=== PATIENT | male | born 1950 | race African-American/Black ===

== ENCOUNTER 2024-02-04 12:09 | Inpatient (IN) | payer MEDICARE, MEDICAID ==
[~2024-02-04] VITALS: Ht 175.3 cm; Wt 85.7 kg
[2024-02-04 13:29] LABS: POTASSIUM 4.2 mEq/L (3.5-5.1)
[2024-02-04 13:30] LABS: CALCIUM 10.3 mg/dL (8.7-10.4)
[2024-02-04 13:32] LABS: INR 1.2; PARTIAL THROMBOPLASTIN TIME 40.1 sec (23.4-31.0)
[2024-02-04] MEDS ORDERED: OXYM30SP26 BOTHNSTRLS (14:41)
[2024-02-04 17:36] LABS: HEMATOCRIT. 22.7 % (42.0-52.0); HEMOGLOBIN. 7.7 g/dL (14.0-18.0); MEAN CORPUSCULAR HGB CONC 33.9 g/dL (31.0-37.0); MEAN CORPUSCULAR VOLUME 88.5 fL (80.0-94.0); MEAN PLATELET VOLUME 8.8 fl (7.4-10.4); RED BLOOD CELL COUNT 2.57 mill/uL (4.7-6.1); RED CELL DISTRIBUTION WIDTH 14.3 % (11.6-14.6); WHITE BLOOD COUNT 4.6 x1000/uL (4.5-11.0)
[2024-02-04 17:37] LABS: DIFFERENTIAL COMMENT 1
[2024-02-04 17:43] LABS: PLATELET 23 x1000/uL (130-400)
[2024-02-04 18:13] LABS: PLATELET ESTIMATE MARKEDLY DECREASED
[2024-02-04 21:00] VITALS: BP 145/71; PULSE 99; RESP 18; TEMP 35.8064
[2024-02-04 21:40] VITALS: BP 145/71; PULSE 99; RESP 18; TEMP 35.78064; O2SAT 100
[2024-02-04] MEDS ORDERED: CLONIDINE 0.1MG TABLET PO PRN (23:00)
[2024-02-04] MEDS ORDERED: IPRATROPIUM/ALBUTEROL 0.5-3(2.5)MG/3ML NEB NEB PRN (23:00)
[2024-02-04] MEDS: SODIUM CHLORIDE 0.9% 1,000 ML IV SCH (23:00)
[2024-02-04] MEDS ORDERED: ZOLPIDEM TARTRATE 5MG TABLET PO PRN (23:00)
[2024-02-04] MEDS ORDERED: ONDANSETRON HCL 4MG/2ML INJ IV PRN (23:00)
[2024-02-04] MEDS ORDERED: ACETAMINOPHEN 325MG TABLET PO PRN (23:00)
[2024-02-05] VITALS (11 sets, daily range): BP systolic 90–140; BP diastolic 54–89; PULSE 87–112; RESP 1–19; TEMP 36.44736–37.39188; O2SAT 96–100
[2024-02-05] MEDS: MORPHINE SULFATE 2 MG/ML INJ (NOT FOR IM USE) IV PRN (01:23)
[2024-02-05 06:21] LABS: INR 1.2; PARTIAL THROMBOPLASTIN TIME 41.9 sec (23.4-31.0)
[2024-02-05] MEDS ORDERED: NALOXONE HCL 0.4MG/ML VIAL IV PRN (07:30)
[2024-02-05] MEDS: PANTOPRAZOLE SODIUM 40 MG/VIAL IV SCH (09:12)
[2024-02-05 10:27] LABS: HEMATOCRIT. 23.3 % (42.0-52.0); HEMOGLOBIN. 7.6 g/dL (14.0-18.0); MEAN CORPUSCULAR HEMOGLOBIN 28.3 pg (28.0-32.0); MEAN CORPUSCULAR HGB CONC 32.6 g/dL (31.0-37.0); MEAN CORPUSCULAR VOLUME 86.8 fL (80.0-94.0); RED BLOOD CELL COUNT 2.69 mill/uL (4.7-6.1); RED CELL DISTRIBUTION WIDTH 14.5 % (11.6-14.6)
[2024-02-05 10:44] LABS: DIFFERENTIAL COMMENT 1; WHITE BLOOD COUNT 5.6 x1000/uL (4.5-11.0)
[2024-02-05 13:44] LABS: POTASSIUM 3.6 mEq/L (3.5-5.1)
[2024-02-05 13:45] LABS: CALCIUM 9.9 mg/dL (8.7-10.4)
[2024-02-05 13:50] LABS: CREATININE 1.9 mg/dL (0.6-1.3)
[2024-02-05 14:42] LABS: NUCLEATED RED BLOOD CELLS 1 /100 WBC; ROULEAUX 2+
[2024-02-05 14:44] LABS: PLATELET ESTIMATE DECREASED
[2024-02-05 14:46] LABS: PLATELET 66 x1000/uL (130-400)
[2024-02-06] VITALS: BP 128/77; PULSE 95; RESP 19; TEMP 37.2252; O2SAT 97
[2024-02-06 01:20] LABS: CREATINE KINASE MB FRACTION 0.7 ng/mL (0.5-3.6); TROPONIN I HIGH SENSITIVITY 8 ng/L (3.0-53)
[2024-02-06 01:22] LABS: CREATINE KINASE 97 IU/L (46-171)
[2024-02-06 04:00] VITALS: BP 121/71; PULSE 87; RESP 19; TEMP 36.89184; O2SAT 96
[2024-02-06 08:00] VITALS: BP 120/76; PULSE 84; RESP 20; TEMP 36.55848; O2SAT 100
[2024-02-06] MEDS: LACTULOSE 20G/30ML UDC PO SCH (09:17)
[2024-02-06] MEDS ORDERED: AMLO10TA80 MT (10:59)
[2024-02-06] MEDS: MORPHINE SULFATE 2 MG/ML INJ (NOT FOR IM USE) IV PRN (11:46)
[2024-02-06 12:00] VITALS: BP 137/85; PULSE 87; RESP 20; TEMP 36.55848; O2SAT 100
[2024-02-06 16:00] VITALS: BP 142/84; PULSE 84; RESP 20; TEMP 36.3918; O2SAT 98
[2024-02-06 20:00] VITALS: BP 131/71; PULSE 92; RESP 20; TEMP 36.3918; O2SAT 95
[2024-02-07] VITALS: BP 122/71; PULSE 95; RESP 20; TEMP 37.00296; O2SAT 96
[2024-02-07 08:00] VITALS: BP 124/74; PULSE 87; RESP 20; TEMP 36.22512; O2SAT 99
[2024-02-07] MEDS: FLUTICASONE PROPIONATE 50MCG/SPRAY BOTTLE BOTHNSTRLS NR (09:13)
[2024-02-07 10:32] VITALS: BP 120/74; PULSE 87; TEMP 97.2; O2SAT 99
[2024-02-07 12:22] VITALS: BP 135/79; PULSE 91; RESP 18; TEMP 36.33624; O2SAT 98
== END 2024-02-07 15:30 | DRG 691 ==
LOC: ER 12:09 → EDBEDREQ 19:45 → EDBEDREQTM 19:45 → 5WST 21:08 → 6EST 02-05 06:22
PROVIDERS: ADMIT Internal Medicine; ATTEND Internal Medicine
PROC: 30233R1 Transfusion of Nonautologous Platelets into Peripheral Vein, Percutaneous Approach (ICD-10-PCS; principal; 2024-02-05)
DX: C90.02 Multiple myeloma in relapse (principal); N17.9 Acute kidney failure, unspecified; D69.6 Thrombocytopenia, unspecified; R04.0 Epistaxis; I12.9 Hypertensive chronic kidney disease with stage 1 through stage 4 chronic kidney disease, or unspecified chronic kidney disease; D64.9 Anemia, unspecified; G89.29 Other chronic pain; N18.9 Chronic kidney disease, unspecified; Z79.899 Other long term (current) drug therapy
CPT/HCPCS: 36415; 80048; 82550; 82553; 84484; 85025; 86850; 86900; 93970; 99291; J2270; J2470; J7030; P9034